=== PATIENT | female | born 2005 | race Caucasian/White ===

== ENCOUNTER → 2024-11-18 | Outpatient (CLI) | payer BC, SELFPAY ==
[2024-11-18 12:05] LABS: Basophils % (Auto) 0 % (0-2.5); Eosinophils # (Auto) 0.1 Thou/mm3 (0.0-0.5); Eosinophils % (Auto) 1 % (0-10); Hematocrit 43.2 % (36.0-46.0); Hemoglobin 14.6 g/dL (12.0-16.0); Immature Granulocytes % (Auto) 0 % (0-0); Immature Granulocytes Auto 0.01 Thou/mm3 (0.00-0.00); Lymphocytes # (Auto) 2.2 Thou/mm3 (1.0-4.8); Lymphocytes % (Auto) 33 % (10-50); Mean Corpuscular HGB Conc 33.8 g/dl (31.0-37.0); Mean Corpuscular Hemoglobin 28.6 pg (25.0-35.0); Mean Corpuscular Volume 85 fL (80-100); Monocytes # (Auto) 0.3 Thou/mm3 (0.0-0.8); Monocytes % (Auto) 5 % (0-12); Neutrophils # (Auto) 4.1 Thou/mm3 (1.8-7.7); Neutrophils % (Auto) 61 % (37-80); Nucleated Red Blood Cell % 0 /100 WBC (0); Platelet Count 276 Thou/mm3 (140-440); RDW Standard Deviation 39.7 fL (36.4-46.3); White Blood Count 6.7 Thou/mm3 (3.6-11.0)
[2024-11-18 12:17] LABS: Glucose Estimated Average 97 mg/dL (80-131)
[2024-11-18 12:21] LABS: Ferritin 58 ng/mL (7.3-270.7); Iron 71 mcg/dL (50-170)
[2024-11-18 12:24] LABS: Alanine Aminotransferase 20 U/L (10-49); Albumin, Serum 4.8 gm/dL (3.5-5.0); Albumin/Globulin Ratio 2.3 (1.2-2.2); Alkaline Phosphatase 58 U/L (46-116); Anion Gap 8 (7-16); Aspartate Amino Transferase 21 U/L (0-34); BUN/Creatinine Ratio 13 Ratio (12-20); Bilirubin,Total 0.4 mg/dL (0.3-1.2); Blood Urea Nitrogen 9 mg/dL (9-23); Calcium 9.9 mg/dL (8.3-10.6); Calcium (Corrected) 9.9 mg/dL (8.5-10.1); Carbon Dioxide 26.8 mMol/L (20.0-31.0); Cardiac Risk Estimate 2.9 RATIO (3.7-5.6); Chloride 107 mMol/L (98-107); Cholesterol 213 mg/dL (132-200); Creatinine (Component) 0.7 mg/dL (0.6-1.3); Free T4 (Free Thyroxine) 1.25 ng/dL (0.89-1.76); Globulin 2.1 gm/dL (2.3-3.5); Glucose 84 mg/dL (74-106); HDL Cholesterol 73 mg/dL (40-60); LDL Cholesterol,Calculated 127 mg/dL (0-130); Osmolality,Calculated 280 (275-295); Potassium 4.3 mMol/L (3.4-5.1); Sodium 142 mMol/L (136-145); Thyroid Stimulating Hormone 0.79 uIU/mL (0.55-4.78); Total Protein 6.9 gm/dL (5.7-8.2); Triglycerides 64 mg/dL (30-150); eGFR > 60 See Note
[2024-11-18 12:51] LABS: Folate > 24.00 ng/mL (>5.38); Vitamin B12 1111 pg/mL (211-911); Vitamin D 25 Hydroxy Total 56.2 ng/mL (7.3-40.2)
[2024-11-18 15:18] LABS: Urea Breath Test Negative (Negative)
[2024-11-28 06:47] LABS: Immunoglobulin A 183 mg/dL (47-310); tTG Ab, IgA <1.0 U/mL
== END | disposition home or self-care (01) ==
LOC: COPL 11:15
PROVIDERS: PCP Internal Medicine; Referring Provider Internal Medicine; Visit Provider Internal Medicine
DX: Z00.00 Encounter for general adult medical examination without abnormal findings (principal); E55.9 Vitamin D deficiency, unspecified
CPT/HCPCS: 36415; 80053; 80061; 82306; 82607; 82728; 82746; 82784; 83013; 83014; 83036; 83540; 83735; 84439; 84443; 85025; 86364

== ENCOUNTER 2024-11-28 13:34 | Outpatient (AMB) | payer BC, SELFPAY ==
[2024-11-28 13:41] VITALS: BP 128/84; PULSE 77; RESP 16; TEMP 36.2; O2SAT 98; BMI 27.4
--- NOTE | 2024-11-28 13:41 | GYNCLNT_ITS ---
Vital Signs 11/28/24 13:41 Height 1.55 m Height Method Stated Weight 65.941 kg Weight Measurement Method Standing Scale BMI 27.4 BP 128/84 Blood Pressure Source Automatic Cuff Blood Pressure Location Left Upper Arm Position Sitting Respiration 16 Pulse 77 Pulse Source Monitor Temp 97.2 F Temp Source Oral Pulse Oximetry (%) 98 Oxygen Delivery Method Room Air Allergies/Home Meds Allergies & Medications Allergies NKA* Allergy (Uncoded 11/28/24 13:43) Intake Visit Data Collection New Patient or Established: Established Patient (seen at [facility] within 3 years) Reason for Visit:: Follow-up on breast lump and discuss contraception Consent obtained for Telemed Visit: No Seen by Clinical Staff ONLY (RN/MA): No Station Installer And Repairer Required: No Do You Feel Safe at Home: Yes Authorities Contacted: N/A PCP or OBGYN visit in last 3 months: No Hx Now: No Are you currently on any form of Control: Yes Last menstrual period: 11/20/23 Pain Present Currently: No Pain Scale Used: Prado-Wisdom/Numerical Pain scale:: 0 Smoking Status Smoking Status: Never smoker 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 1. Little interest or pleasure in doing things: not at all 2. Feeling down, depressed, or hopeless: not at all Total score: 0 Depression screen completed yes Social History Living Situation History Marital Status: Single Lives With: Family Housing: House Housing Other:: Patient has had 1 lifetime sexual partner and is studying to be an [employer] Tobacco History Smoking Status: Never smoker Alcohol History Alcohol Intake: Never Domestic Abuse History Do You Feel Safe at Home: Yes Past Medical History Past Medical History Have you ever been diagnosed with any of the following: Neurological Problems Meningitis: No Seizures: No Hanley's Palsy: No Migraine: No Cardiology Problems Cardiac Arrhythmia: No Heart Murmur: No Deep Vein Thrombosis: No Hypertension: No Respiratory Problems Asthma: No Pulmonary Embolism: No Sleep Apnea: No Stomache/Intestinal Problems Celiac Disease: No Gall Bladder Disease: No Irritable Bowel: No Gastroesophageal Reflux Disease: No Genital/Urinary Problems Renal Disease: No Kidney Stones: No Reproductive Problems Breast Cancer: No Endometriosis: No Fibroids: No Genital Herpes: No Gonorrhea: No Pelvic Inflammatory Disease: No Polycystic Ovarian Syndrome: No Previous Pregnancies: No Syphilis: No Musculoskeletal Problems Arthritis: No Rheumatoid Arthritis: No Scoliosis: No Head,Eye,Nose,Throat Problems Glaucoma: No Endocrine Problems Diabetes Mellitus Type 2: No Hyperthyroidism: No Hypothyroidism: No Systemic Lupus Erythematosus: No Blood Problems Anemia: No Clotting Problems: No Psychologic Problems Depression: No Anxiety: No Attention Deficit Hyperactivity Disorder: No Other Problems Hospitalization: No Autoimmune Disease: No Surgical History Appendectomy: No Bariatric Surgery: No Breast Surgery: No Cholecystectomy: No History of Present Illness HPI Narrative The patient is a 19-year-old G0 presents for follow-up. She was seen at our office in [place] and had a Pap 6 months ago. During her annual exam our physicians machine assistant, Parth, noted breast lumps in her right breast. She had an ultrasound performed 06/08/2024 which was reviewed today revealing a 2.3 cm circumference size solid mass versus cyst at 9:00 on the right breast and a 1.6 mass at the 7:00 on the right breast they were both noted to be probably benign and suspicious for fibroadenomas versus complex cysts. The plan was to repeat an ultrasound in 6 months and she is due for that now. Patient would also like to discuss going off control because she states it makes her domingo. She went on control she was 12 for very painful cycles. She was in competitive cheer at the time. She is on Blisovi FE now. She is interested in hearing about a Kely IUD. Review of Systems Constitutional Constitutional: Reports system reviewed and no additional complaints, except as documented Comments: No breast pain nipple discharge or lymphadenopathy. She has no irregular bleeding on her control pills pills. She states she is domingo. She is unsure whether she has premenstrual dysphoric disorder. Or whether her moods change with her menstrual cycle. Exam General Limitations: no limitations General Appearance: alert, in no apparent distress, comfortable, cooperative and well groomed Head Head exam: atraumatic, normocephalic and normal inspection Neck Neck exam: Present normal inspection, full ROM and trachea midline Chest Chest inspection: Present normal inspection and symmetric chest wall rise Exp Chest Breast: right: other (2 cyst present on patient's right breast at 7:00 and 9:00. Both are mobile) Resp Respiratory exam: Present normal lung sounds bilaterally Card Cardiovascular exam: Present regular rate, normal rhythm and normal heart sounds Abdominal Abdominal exam: Present soft and normal bowel sounds Psych Psychiatric exam: Present normal affect and normal mood Skin Skin exam: Present warm, dry, intact and normal color Assessment & Plan Diagnosis / Problem List (1) Multiple cysts of breast: Status: Acute Plan: Ordered right breast ultrasound. Possible referral to general surgeon after ultrasound is back. (2) Contraceptive education: Status: Acute Plan: Different options were discussed with the patient today including going off control and using condoms to time out her cycles and her moods, Nexplanon, Kely, Mirena, or ParaGard IUD. Switching to a different control pill was discussed. Patient wants to have a Kely IUD placed we will authorize and order this for the patient. Additional Plan Follow Up: 4 Weeks (We will call her once the IUD is authorized and ordered) Office Procedures OB Clinic LOC & Office Proc's Nursing/Assessment Patient Status: Established Patient OB Clinic Nursing Assessment: BP Monitoring, Medication Reconciliation, Update PMH in EMR and Vital Signs OB Clinic Coordination of Care: Consent,records obtained, informed consent, Education Simp Pt/Fam, Results/Orders obtained and Staff clarify orders Established Patient Charge Established Patient Point Assignment: 80 Established Patient Point Charge: EP Level 3 (80-115)
== END 2024-11-28 14:18 | disposition home or self-care (01) ==
LOC: HODSOBC 13:34
PROVIDERS: PCP Obstetrics & Gynecology; Supervising Provider Obstetrics & Gynecology; Visit Provider Obstetrics & Gynecology
DX: N60.01 Solitary cyst of right breast (principal); Z30.09 Encounter for other general counseling and advice on contraception
CPT/HCPCS: 99213; G0463

== ENCOUNTER 2025-02-08 13:14 | Outpatient (AMB) | payer BC, SELFPAY ==
--- NOTE | 2025-02-08 13:39 | GYNCLNT_ITS ---
Vital Signs 02/08/25 13:40 Height 1.55 m Height Method Stated Weight 65.487 kg Weight Measurement Method Standing Scale BMI 27.2 BP 121/76 Blood Pressure Source Automatic Cuff Blood Pressure Location Left Upper Arm Position Sitting Respiration 18 Pulse 73 Pulse Source Monitor Temp 96.8 F Temp Source Oral Pulse Oximetry (%) 98 Oxygen Delivery Method Room Air Allergies/Home Meds Allergies & Medications Allergies NKA* Allergy (Uncoded 02/08/25 13:41) Medication Reconciliation No Known Home Medications 02/08/25 [History Confirmed 02/08/25] Intake Visit Data Collection New Patient or Established: Established Patient (seen at [facility] within 3 years) Reason for Visit:: Here for an insertion of a Kely IUD Seen by Clinical Staff ONLY (RN/MA): No Allergist/Pediatric Pulmonologist Required: No Do You Feel Safe at Home: Yes Authorities Contacted: N/A PCP or OBGYN visit in last 3 months: Yes Date of Last PCP or OBGYN visit: 11/28/24 Hx Now: No Are you currently on any form of Control: Yes Pain Present Currently: No Pain Scale Used: Prado-Wisdom/Numerical Pain scale:: 0 Smoking Status Smoking Status: Never smoker 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 1. Little interest or pleasure in doing things: not at all 2. Feeling down, depressed, or hopeless: not at all Total score: 0 PHQ-9 3. Trouble falling or staying asleep, or sleeping too much: Not at all 4. Feeling tired or having little energy: Not at all 5. Poor appetite or overeating: Not at all 6. Feeling bad about yourself - or that you are a failure or have let yourself or your family down: Not at all 7. Trouble concentrating on things, such as reading the newspaper or watching television: Not at all 8. Moving or speaking so slowly that other people could have noticed? - Or the opposite - being so fidgety or restless that you have been moving around a lot more than usual: not at all 9. Thoughts that you would be better off or of hurting yourself in some way: Not at all Total score: 0 If you checked off any problems, how difficult have these problems made it for you to do your work, take care of things at home, or get along with other people?: not difficult at all Source: Developed by Drs. Boubacar Castillo, Latrice Mckee, Madi Sheppard and colleagues, with an educational chris from [employer]. Depression screen completed yes Social History Living Situation History Lives With: Family Housing: House Housing Other:: Patient has had 1 lifetime sexual partner and is studying to be an [employer] Tobacco History Smoking Status: Never smoker Second Hand Smoke Exposure: No Alcohol History Alcohol Intake: Never Domestic Abuse History Do You Feel Safe at Home: Yes Past Medical History Past Medical History Have you ever been diagnosed with any of the following: Neurological Problems Meningitis: No Seizures: No Hanley's Palsy: No Migraine: No Cardiology Problems Cardiac Arrhythmia: No Heart Murmur: No Congestive Heart Failure: No Deep Vein Thrombosis: No Hypertension: No Respiratory Problems Chronic Obstructive Pulmonary Disease (COPD): No Asthma: No Pulmonary Embolism: No Sleep Apnea: No Stomache/Intestinal Problems Celiac Disease: No Gall Bladder Disease: No Irritable Bowel: No Gastroesophageal Reflux Disease: No Genital/Urinary Problems Renal Disease: No Kidney Stones: No Reproductive Problems Breast Cancer: No Endometriosis: No Fibroids: No Genital Herpes: No Gonorrhea: No Pelvic Inflammatory Disease: No Polycystic Ovarian Syndrome: No Previous Pregnancies: No Syphilis: No Musculoskeletal Problems Arthritis: No Rheumatoid Arthritis: No Scoliosis: No Head,Eye,Nose,Throat Problems Glaucoma: No Endocrine Problems Diabetes Mellitus Type 1: No Diabetes Mellitus Type 2: No Hyperthyroidism: No Hypothyroidism: No Systemic Lupus Erythematosus: No Blood Problems Anemia: No Clotting Problems: No Psychologic Problems Depression: No Anxiety: No Attention Deficit Hyperactivity Disorder: No Other Problems Hospitalization: No Blood Transfusions: No Blood Transfusion Reaction: No Anesthesia Reactions: No Surgical History Appendectomy: No Bariatric Surgery: No Breast Surgery: No Cholecystectomy: No History of Present Illness HPI Narrative Patient is a 19-year-old G0 presents for Kely IUD insertion. She is on Blisovi FE for contraception. test is negative in the office. The patient states she feels domingo on the control pill and would like to try a Kely. She has irritable bowel syndrome and is used to cramps. She did sign her consent today for the risk of an IUD insertion. She understands the risk of bleeding, infection, expulsion, or perforation. She understands that if uterine perforation does occur I will have to for a formal laparoscopy to remove the IUD. All questions were answered and written consent was obtained prior to the procedure. Patient is on her menses today. Review of Systems Review of Systems Narrative Review of Systems: Patient is on her menses today which is a normal time to withdraw on her control pack Exam General General Appearance: alert, in no apparent distress, comfortable, cooperative, healthy appearing and well groomed External exam: Present normal external exam Speculum exam: Present normal speculum exam Bimanual exam: Present normal bimanual exam (Anteverted) Assessment & Plan Diagnosis / Problem List (1) Contraceptive education: Status: Acute (2) Encounter for insertion of Kely IUD: Status: Acute Plan: A Kely IUD inserted was without difficulty today. The patient was told to refrain from intercourse for 2 weeks. 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 I do not have the results. We will look these up and follow-up with her at her 2-week string check. Additional Plan Follow Up: 2 Weeks Office Procedures OB Clinic LOC & Office Proc's Nursing/Assessment Patient Status: Established Patient OB Clinic Nursing Assessment: BP Monitoring, Medication Reconciliation, Update PMH in EMR and Vital Signs OB Clinic Coordination of Care: Consent,records obtained, informed consent, Education Simp Pt/Fam and Staff clarify orders Miscellaneous Interventions: Pelvic Culture and Pelvic no cultures Established Patient Charge Established Patient Point Assignment: 95 Established Patient Point Charge: EP Level 3 (80-115) In Clinic Bedside tests Bedside HCG: Yes In Clinic Procedures INSERTION OF ANY IUD DEVICE: Yes Urine HCG Ambulatory Location Ambulatory Dept Location: OB Clinic Urine HCG HCG: Yes Results Urine HCG Urine HCG Negative Last Edit by Cara Monsalve MA on 02/08/25 13:46 ROTARY VENEER MACHINE OPERATOR: BC insert/removal Procedure Notes Consent obtained: yes-verbal and yes-written Pre-op diagnosis general: Desires long-term reversible contraception in the form of Kely IUD Post-op diagnosis procedure note: Same IUD type inserted: Kely IUD Lot and Exp: Lot#: [id number] Expiration date: 11/24/2026 Procedure Notes:: After obtaining verbal and written consent by the patient and answering any questions the patient had, the patient was positioned [facility] the [facility] A pelvic exam was performed the uterus was anteverted and normal size. A speculum exam was then performed and the cervix prepped with Betadine. A single-tooth tooth tenaculum was placed at the 12 o'clock position. The patient's uterus was then sounded to 7 cm and a Kely IUD inserted to the fundus of the uterus without difficulty. The strings were kept along. All instrumentation was removed from the patient's vagina and the tenaculum site noted to be hemostatic. The patient tolerated the procedure well. She denied any lightheadedness or dizziness. Her pain was minimal with some moderate cramping at placement but patient stated this was quite tolerable. She did take ibuprofen prior to coming to the appointment. She was told to refrain from inte rcourse and tampon use for 2 weeks and to follow-up for string check in 2 weeks.
[2025-02-08 13:40] VITALS: BP 121/76; PULSE 73; RESP 18; TEMP 36; O2SAT 98; BMI 27.2
== END 2025-02-08 14:23 | disposition home or self-care (01) ==
LOC: HODSOBC 13:14
PROVIDERS: Supervising Provider Obstetrics & Gynecology; Visit Provider Obstetrics & Gynecology
DX: Z30.014 Encounter for initial prescription of intrauterine contraceptive device (principal); N60.09 Solitary cyst of unspecified breast; Z79.3 Long term (current) use of hormonal contraceptives
CPT/HCPCS: 58300; 81025; 99213; J7301; G0463

== ENCOUNTER 2025-02-20 15:16 | Outpatient (AMB) | payer BC, SELFPAY ==
[2025-02-20 16:14] VITALS: BP 127/82; PULSE 90; RESP 18; TEMP 36.8; O2SAT 99; BMI 26.8
--- NOTE | 2025-02-20 16:14 | GYNCLNT_ITS ---
Vital Signs 02/20/25 16:14 Height 1.55 m Height Method Stated Weight 64.467 kg Weight Measurement Method Standing Scale BMI 26.8 BP 127/82 Blood Pressure Source Automatic Cuff Blood Pressure Location Right Upper Arm Position Sitting Respiration 18 Pulse 90 Pulse Source Monitor Temp 98.2 F Temp Source Oral Pulse Oximetry (%) 99 Oxygen Delivery Method Room Air Allergies/Home Meds Allergies & Medications Allergies NKA* Allergy (Uncoded 02/20/25 16:15) Medication Reconciliation spironolactone 50 mg tablet 50 mg PO QDAY #90 tabs 02/20/25 [Rx] Intake Visit Data Collection New Patient or Established: Established Patient (seen at [facility] within 3 years) Reason for Visit:: IUD CHECK Seen by Clinical Staff ONLY (RN/MA): No Pipeline Integrity Engineer Required: No Do You Feel Safe at Home: Yes Authorities Contacted: N/A PCP or OBGYN visit in last 3 months: Yes Hx Now: No Are you currently on any form of Control: Yes Pain Present Currently: No Pain Scale Used: Prado-Wisdom/Numerical Pain scale:: 0 Smoking Status Smoking Status: Never smoker 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 Menstrual regularity: irregular Flow: normal Monthly: No How many days does period last: 4 Age at menarche: 9 Currently sexually active: Yes GOLD NIB GRINDER: Past Medical History Past Medical History: No Hx Neurological Disorders, No Hx Hypothyroidism, No Hx Hyperthyroidism, No Hx Breast Cancer, No Hx Cardiac Disorders, No Hx Hypertension, No Hx Blood Disorders, No Hx Anemia, No Hx Gastrointestinal Disorders, No Hx Renal Disease, No Hx Deep Vein Thrombosis, No Hx Diabetes Mellitus Type 1, No Hx Diabetes Mellitus Type 2 and No Hx Polycystic Ovarian Syndrome Questionnaires Covid-19 Vaccine Questionnaire Has patient been vacinated for Covid-19 Have you been vacinated for Covid-19: Yes PHQ-9 PHQ-2 Over the last 2 weeks, how often have you been bothered by any of the following problems? 1. Little interest or pleasure in doing things: not at all 2. Feeling down, depressed, or hopeless: not at all Total score: 0 PHQ-9 3. Trouble falling or staying asleep, or sleeping too much: Not at all 4. Feeling tired or having little energy: Not at all 5. Poor appetite or overeating: Not at all 6. Feeling bad about yourself - or that you are a failure or have let yourself or your family down: Not at all 7. Trouble concentrating on things, such as reading the newspaper or watching television: Not at all 8. Moving or speaking so slowly that other people could have noticed? - Or the opposite - being so fidgety or restless that you have been moving around a lot more than usual: not at all 9. Thoughts that you would be better off or of hurting yourself in some way: Not at all Total score: 0 Source: Developed by Drs. Boubacar Castillo, Latrice Mckee, Madi Sheppard and colleagues, with an educational chris from [employer]. Depression screen completed yes Social History Living Situation History Marital Status: Single Lives With: Family Housing: House Housing Other:: Patient has had 1 lifetime sexual partner and is studying to be an [employer] Tobacco History Smoking Status: Never smoker Second Hand Smoke Exposure: No Alcohol History Alcohol Intake: Never Domestic Abuse History Do You Feel Safe at Home: Yes History of Present Illness HPI Narrative The patient is a 19-year-old G0 who presents for an IUD check. I placed a Kely IUD 2 weeks ago. Patient states the day after I placed that she was in horrible pain and almost went to the ER. She took some ibuprofen she is doing much better now. Her only complaint is she feels like she is breaking out now that she is not on control pills she states that she went on control at age 11 due to cystic acne. She would like to try something for acne. She has not had intercourse since I placed the IUD she has no abnormal discharge odor or heavy bleeding. Her pain has resolved. Exam General General Appearance: alert, in no apparent distress, comfortable, cooperative, healthy appearing, well developed and well groomed External exam: Present normal external exam Speculum exam: Present normal speculum exam and other (IUD strings visualized one inch outside cervix) Bimanual exam: Present normal bimanual exam Office Procedures OB Clinic LOC & Office Proc's Nursing/Assessment Patient Status: Established Patient OB Clinic Nursing Assessment: Medication Reconciliation, Update PMH in EMR and Vital Signs OB Clinic Coordination of Care: Complex Care and Chronic Disease 1-5, Consent,records obtained, informed consent, Education Simp Pt/Fam and Staff clarify orders Miscellaneous Interventions: Pelvic no cultures Established Patient Charge Established Patient Point Assignment: 95 Established Patient Point Charge: EP Level 3 (80-115) Assessment & Plan Diagnosis / Problem List (1) Presence of Kely IUD: Status: Acute Assessment and Plan: IUD string check successful today. Okay to use IUD for control. Okay for intercourse and tampon use. (2) Cystic acne: Status: Acute Assessment and Plan: Try spironolactone. Patient declines control pills.
== END 2025-02-20 17:03 | disposition home or self-care (01) ==
LOC: HODSOBC 15:16
PROVIDERS: Supervising Provider Obstetrics & Gynecology; Visit Provider Obstetrics & Gynecology
DX: Z30.431 Encounter for routine checking of intrauterine contraceptive device (principal); L70.0 Acne vulgaris
CPT/HCPCS: 99213; G0463

== ENCOUNTER → 2025-03-21 | Outpatient (CLI) | payer BC, SELFPAY ==
--- NOTE | 2025-03-21 14:38 | XR_ITS ---
Examination: Foot, left, 3 views Technique: AP, oblique, lateral views foot, 3 views Date and time of exam: March 21, 2025 1507 hours INDICATIONS: Injury to the left foot 4 days ago with foot pain FINDINGS: Small old bone density adjacent to the cuboid No acute fracture No dislocation IMPRESSION: No acute fracture
--- NOTE | 2025-03-21 14:39 | XR_ITS ---
EXAMINATION: Ankle, left 3 views . Technique: Ankle AP, oblique, lateral 3 views Date and time of exam: March 21, 2025 1507 hours INDICATIONS: Injury to ankle 4 days ago, ankle pain. FINDINGS: Lateral malleolar soft tissue swelling No ankle fracture or dislocation IMPRESSION: No ankle fracture or dislocation
== END | disposition home or self-care (01) ==
PROVIDERS: PCP Internal Medicine; Referring Provider Internal Medicine; Visit Provider Internal Medicine
DX: S99.922A Unspecified injury of left foot, initial encounter (principal); S99.912A Unspecified injury of left ankle, initial encounter; X58.XXXA Exposure to other specified factors, initial encounter
CPT/HCPCS: 73610; 73630